=== PATIENT | male | born 1950 | race Caucasian/White ===

== ENCOUNTER 2019-04-26 22:40 | Observation (INO) | payer OTHER ==
--- NOTE | 2019-04-26 22:56 | PDOC ---
History of Present Illness - General Chief Complaint: Chest Pain Stated Complaint: CHEST PAIN Time Seen by Provider: 04/26/19 22:55 History Source: Patient Exam Limitations: No Limitations - History of Present Illness Initial Comments: Pt is a 68 yo M, with PMH of HTN (newly on metoprolol) and bradycardia, who is presenting with complaints of chest discomfort. Pt states he was at [facility] 6 days ago, and received an echo and cath which "all came back normal". Pt states he was unable to tolerate the stress test and that while he was in the hospital, his HR was "up and down". Pt states his chest pressure started about an hour before arrival, was non-exertional, but was associated with diaphoresis , light-headedness, and "racing in my chest". He denies any nausea/vomiting or radiation of pain. Pt states this pain is very similar to the pain that took him to [facility] ER, but denies any active pain now. The pain lasts usually about an hour at a time. Pt denies any recent fevers/chills, headache, vision changes, syncope, SOB, nausea/vomiting, abdominal pain, urinary symptoms, diarrhea/constipation, or leg swelling. Allergies: NKDA PCP: None Social: Pt denies any cigarette, alcohol, or drug use. Pt denies any recent travel or sick contacts. Surgical: no relevant history. Family: no relevant history. 04/27/19 00:07 04/27/19 00:18 Past History - Travel Traveled outside of the country in the last 30 days: No Close contact w/someone who was outside of country & ill: No - Past Medical History Allergies/Adverse Reactions: Allergies Allergy/AdvReac Type Severity Reaction Status Date / Time No Known Allergies Allergy Verified 04/26/19 22:51 COPD: No HTN: Yes - Suicide/Smoking/Psychosocial Hx Smoking History: Never smoked Cardiac Specific PMH - Complaint Specific PMHX Abdominal Aortic Aneurysm: No Angina: Yes Cardiac Arrhythmia: No Cardiac Stent: No GERD: No Myocardial Infarction: No Pacemaker: No Pulmonary Embolus: No Valvular Heart Disease: No Peripheral Vascular Disease: No Review of Systems - Review of Systems Able to Perform ROS?: Yes Is the patient limited Barbadian proficient: No Constitutional: Yes: Weight Stable. No: Chills, Diaphoresis, Fever, Loss of Appetite, Malaise, Weakness HEENTM: No: Blurred Vision, Double Vision, Nose Congestion, Throat Pain, Throat Swelling, Difficulty Swallowing Respiratory: No: Cough, Orthopnea, Shortness of Breath Cardiac (ROS): Yes: Chest Pain, Irregular Heart Rate, Lightheadedness, Palpitations. No: Edema, Syncope, Chest Tightness ABD/GI: No: Constipated, Diarrhea, Nausea, Poor Appetite, Poor Fluid Intake, Vomiting : No: Burning, Dysuria, Frequency, Pain, Urgency Musculoskeletal: No: Back Pain, Joint Pain, Muscle Pain, Muscle Weakness Integumentary: No: Rash Neurological: No: Headache, Numbness, Paresthesia, Weakness, Unsteady Gait, Dizziness Psychiatric: No: Sleep Pattern Change, Change in Appetite Endocrine: No: Increased Urine, Change in Weight Hematologic/Lymphatic: No: Anemia, Blood Clots, Easy Bleeding, Easy Bruising *Physical Exam - Vital Signs Last Vital Signs Temp Pulse Resp BP Pulse Ox 98.2 F 49 L 14 116/70 100 04/26/19 22:51 04/27/19 00:57 04/27/19 00:57 04/27/19 00:57 04/27/19 00:57 HR 40s on palp, pt afebrile. Pt in NAD, lying comfortably in the bed, speaking in full sentences. Normal body habitus. Pt alert and oriented x3. 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 No midline spinal tenderness, step-offs, or crepitus. Head normocephalic, atraumatic. Eyes PERRLA, EOMI. Oropharynx without erythema or exudates, no LAD b/l. No nasal congestion, hearing intact. Clear heart sounds, S1/S2, no JVD, b/l pedal edema, or heart murmur. Clear lung sounds, no respiratory distress, wheezes, crackles, or accessory muscle use. No abdominal or CVA tenderness to palpation, no rebound, no guarding. Abdomen soft, non-distended, and with normoactive bowel sounds. Skin without jaundice or rash. 04/27/19 00:19 ED Treatment Course - LABORATORY CBC & Chemistry Diagram: 04/26/19 23:15 04/26/19 23:15 - ADDITIONAL ORDERS Additional order review: Laboratory Results 04/26/19 04/26/19 04/26/19 23:15 23:15 23:15 PT with INR 13.20 H INR 1.12 H Sodium 139 Potassium 4.4 Chloride 104 Carbon Dioxide 28 Anion Gap 6 L BUN 16.8 Creatinine 1.1 Est GFR (CKD-EPI)AfAm 80.65 Est GFR (CKD-EPI)NonAf 69.58 Random Glucose 108 H Calcium 9.2 Magnesium 2.4 Total Bilirubin 0.5 AST 53 H ALT 78 H Alkaline Phosphatase 54 Creatine Kinase 53 Troponin I < 0.02 Total Protein 7.3 Albumin 3.8 04/26/19 23:15 RBC 4.89 MCV 93.2 MCHC 33.8 RDW 13.3 MPV 9.3 Neutrophils % 70.2 Lymphocytes % 16.9 Monocytes % 11.3 H Eosinophils % 1.3 Basophils % 0.3 - RADIOLOGY Radiology Studies Ordered: Category Date Time Status CHEST X-RAY PORTABLE* [RAD] Stat Radiology 04/26/19 22:57 Taken - Medications Given in the ED: ED Medications Discontinued Medications Generic Name Dose Route Start Last Admin Trade Name Freq PRN Reason Stop Dose Admin Aspirin 162 mg 04/26/19 23:41 04/27/19 00:12 Asa - PO 04/26/19 23:42 162 mg ONCE ONE Administration Medical Decision Making - Medical Decision Making Pt was seen at bedside, also will be seen by attending Dr. Man. Pt presenting with chest pressure similar to a few days ago in which he had a negative cath and echo, per patient. Pt had bradycardia (HR 50s) with bigeminy and PVCs at [facility] (confirmed with ER doctor at [facility] with pts permission ), but was started on 25 mg PO metoprolol BID with outpatient f/u. Will evaluate with labs to r/o ACS -- will stay for tele observation. Provided 162 mg PO aspirin. Pt states no active chest pain at this time. Will continue to reassess pt and monitor for symptomatic improvement. ECG: Frequent PVCs with bigeminy (HR 62, TN 168, QRS 100, QTc 442). No TWIs or significant ST segment changes. No prior ECG for comparison. 04/27/19 00:20 Labs generally WNL Trop <.02; BP remained stable and pt asymptomatic pt admitted to hospitalist team (Dr. Box) for tele obs. 04/27/19 01:34 *DC/Admit/Observation/Transfer Diagnosis at time of Disposition: Ventricular bigeminy seen on cardiac specialist, Bradycardia, Chest pressure - Discharge Dispostion Condition at time of disposition: Stable Decision to Admit order: Yes Decision to Admit order Date/Time: Decision to Admit Order Category Date Time Status Decision to Admit to Hospital Routine Admission 04/27/19 00:29 Active - Referrals - Patient Instructions - Post Discharge Activity
[2019-04-26] MEDS ORDERED: ASPIRIN 81 MG CHEWABLE TABLETS PO ONE (23:41)
[2019-04-26 23:50] LABS: BASO % 0.3 % (0-2.0); EOS % 1.3 % (0-4.5); HEMATOCRIT 45.5 % (35.4-49); HEMOGLOBIN 15.4 GM/dL (11.7-16.9); LYMPH % 16.9 % (8-40); MCH 31.5 pg (25.7-33.7); MCHC 33.8 g/dl (32.0-35.9); MEAN CELL VOLUME 93.2 fl (80-96); MEAN PLT VOLUME 9.3 fl (7.5-11.1); MONO % 11.3 % (3.8-10.2); NEUT % 70.2 % (42.8-82.8); PLATELET COUNT 178 K/MM3 (134-434); RBC 4.89 M/mm3 (4.00-5.60); RDW 13.3 % (11.9-15.9); WHITE BLOOD COUNT 6.7 K/mm3 (4.0-10.0)
[2019-04-27] MEDS ORDERED: ASPIRIN 81 MG CHEWABLE TABLETS ONE (00:09)
[2019-04-27 00:27] LABS: ALBUMIN 3.8 g/dl (3.4-5.0); BILIRUBIN,TOTAL 0.5 mg/dL (0.2-1); BLOOD UREA NITROGEN 16.8 mg/dL (7-18); CALCIUM 9.2 mg/dL (8.5-10.1); CREATININE 1.1 mg/dL (0.55-1.3); MAGNESIUM 2.4 mg/dL (1.8-2.4); POTASSIUM 4.4 mmol/L (3.5-5.1); TOT PROT 7.3 g/dl (6.4-8.2)
[2019-04-27 00:45] LABS: INR 1.12 (0.83-1.09); PROTHROMBIN TIME (PATIENT) 13.2 SEC (9.7-13.0)
--- NOTE | 2019-04-27 00:45 | PDOC ---
Documentation entered by Naomy Ruano SCRIBE, acting as scribe for Rima Man MD. Rima Man MD: This documentation has been prepared by the Alden horvath Sammi, SCRIBE, under my direction and personally reviewed by me in its entirety. I confirm that the documentation accurately reflects all work, treatment, procedures, and medical decision making performed by me. Attending Attestation - Resident Resident Name: Consuelo Mauro - ED Attending Attestation I have performed the following: I have examined & evaluated the patient, The case was reviewed & discussed with the resident, I agree w/resident's findings & plan, Exceptions are as noted - HPI HPI: 04/26/19 23:47 The patient is a 68 year old male who presents for evaluation of chest pressure and diaphoresis at rest. The patient was admitted on 04/24 at [facility] for similar symptoms. The patient received a cath and echo which came back normal and was discharged on toprol. - Physicial Exam PE: 04/27/19 00:39 wnwd 68 yo male with chest pain head ncat neck supple lungs cta b/l cvs [id number] abd nontender skn warm and dry no flank tenderness neuro axox3,ambulatory psych appropriate - Medical Decision Making 04/27/19 00:41 ekg bradycardia, bigeminy,pvcs , inc RBBB 04/27/19 00:42 negative troponin pt received aspirin chest pain improved pt admitted to telemetry
--- NOTE | 2019-04-27 02:15 | HP ---
CHIEF COMPLAINT: chest pain PCP: none (needs primary) HISTORY OF PRESENT ILLNESS: Carlos Arnold is a 68 year old male with a past medical history HTN and bradycardia who presents to the ED with chest pressure of 1 hour duration. The patient stated that he has been having these kinds of pain for the last 6-7 months. He states the pains are associated with shortness of breath, are exertional, associated with diaphoresis, lightheadedness. He stated that the pains had been worsening over the last several months. Noted that the pains are sharp in nature, present for an hour or less, are reproducible with bending and pressure on the spot he feels the most pain. Presented to [facility] 6 days ago with the same kind of pain and was admitted for ACS workup. EKG at that facility showed bradycardia, ventricular bigeminy, PVCs showing ST depressions in leads II, III, aVF, V4, V5, V6. Cardiac cath was performed at [facility] which did not show any abnormalities in any cardiac vessels. Was started on Toprol 25mg. Today the patient stated that he had the same kind of pain that he has been having and presented to [place]. States that the pain is located on the right side of the chest but can sometimes present on the left side of the chest and migrate. Denied pain radiating down the arm or radi Denied headaches, fever, chills, weight gain, weight loss, nausea, vomiting, dysphagia, dysarthria , abdominal pain, numbness, tingling. Stated he had occasional cold sensations, increased urination at night, pain in R leg (previous fracture in leg). Partner at bedside stated that the patient has snoring and occasional apneas during the night. ER course was notable for: (1) given aspirin (2) negative troponins (3) EKG showing sinus bradycardia with ventricular bigeminy, PVCs with ST depressions in II, III, aVF, V4, V5, V6, unchanged from previous EKG from [facility] (4) bradycardia on monitor PAST MEDICAL HISTORY: as above PAST SURGICAL HISTORY: denies surgical history Social History: Smoking: quit, previously smoked 5 cigars a day for 20 years Alcohol: occasional wine drinking Drugs: denies Family History: Denies any significant family history Allergies No Known Allergies Allergy (Verified 04/26/19 22:51) HOME MEDICATIONS: REVIEW OF SYSTEMS CONSTITUTIONAL: Absent: fever, chills, diaphoresis, generalized weakness, malaise, loss of appetite, weight change HEENT: Absent: rhinorrhea, nasal congestion, throat pain, throat swelling, difficulty swallowing, visual changes CARDIOVASCULAR: chest pain, irregular heart rate, lightheadedness Absent: syncope, palpitations, peripheral edema RESPIRATORY: shortness of breath, dyspnea with exertion, Absent: cough, orthopnea, wheezing, stridor, GASTROINTESTINAL: Absent: abdominal pain, abdominal distension, nausea, vomiting, diarrhea, constipation, GENITOURINARY: frequency Absent: dysuria, urgency, hesitancy, flank pain, MUSCULOSKELETAL: back pain (lower, parasternal) Absent: myalgia, arthralgia, joint swelling, neck pain SKIN: Absent: rash, itching, pallor HEMATOLOGIC/IMMUNOLOGIC: Absent: easy bleeding, easy bruising, lymphadenopathy, frequent infections ENDOCRINE: cold intolerance Absent: unexplained weight gain, unexplained weight loss, heat intolerance, NEUROLOGIC: Absent: headache, focal weakness or paresthesias, dizziness, unsteady gait, seizure, mental status changes, bladder or bowel incontinence PSYCHIATRIC: Absent: anxiety, depression, suicidal or homicidal ideation, hallucinations. PHYSICAL EXAMINATION Vital Signs - 24 hr 04/26/19 04/26/19 04/27/19 22:51 23:42 00:57 Temperature 98.2 F Pulse Rate 29 L Pulse Rate [ 49 L 49 L Left] Respiratory 14 14 Rate Blood Pressure 136/56 L Blood Pressure 116/70 116/70 [Right] O2 Sat by Pulse 100 98 100 Oximetry (%) GENERAL: Awake, alert, and fully oriented, in no acute distress. HEAD: Normal with no signs of trauma. EYES: Pupils equal, round and reactive to light, extraocular movements intact, sclera anicteric, conjunctiva clear. EARS, NOSE, THROAT: Oropharynx clear without exudates. Moist mucous membranes. NECK: Normal range of motion, supple without lymphadenopathy, JVD. LUNGS: Breath sounds equal, clear to auscultation bilaterally. No wheezes, and no crackles. No accessory muscle use. HEART: Irregular rate and rhythm, normal S1 and S2 without murmur, rub. Pain reproducible upon palpation. ABDOMEN: Soft, nontender, not distended, normoactive bowel sounds, no guarding, no rebound, no masses. MUSCULOSKELETAL: Normal range of motion at all joints. No bony deformities. Has lower back paraspinal tenderness. Noted chronic lipomas on back. UPPER EXTREMITIES: 2+ pulses, warm, well-perfused. No cyanosis. No clubbing. No peripheral edema. LOWER EXTREMITIES: 2+ pulses, warm, well-perfused. Mild calf tenderness. No peripheral edema. NEUROLOGICAL: Cranial nerves II-XII intact. Normal muscle strength bilaterally upper and lower extremities. PSYCHIATRIC: Cooperative. Good eye contact. Appropriate mood and affect. SKIN: Warm, dry, normal turgor, no rashes or lesions noted, normal capillary refill. Laboratory Results - last 24 hr 04/26/19 04/26/19 04/26/19 23:15 23:15 23:15 WBC 6.7 RBC 4.89 Hgb 15.4 Hct 45.5 MCV 93.2 MCH 31.5 MCHC 33.8 RDW 13.3 Plt Count 178 MPV 9.3 Absolute Neuts (auto) 4.7 Neutrophils % 70.2 Lymphocytes % 16.9 Monocytes % 11.3 H Eosinophils % 1.3 Basophils % 0.3 Nucleated RBC % 0 PT with INR INR Sodium 139 Potassium 4.4 Chloride 104 Carbon Dioxide 28 Anion Gap 6 L BUN 16.8 Creatinine 1.1 Est GFR (CKD-EPI)AfAm 80.65 Est GFR (CKD-EPI)NonAf 69.58 Random Glucose 108 H Calcium 9.2 Magnesium 2.4 Total Bilirubin 0.5 AST 53 H ALT 78 H Alkaline Phosphatase 54 Creatine Kinase 53 Troponin I < 0.02 Total Protein 7.3 Albumin 3.8 04/26/19 23:15 WBC RBC Hgb Hct MCV MCH MCHC RDW Plt Count MPV Absolute Neuts (auto) Neutrophils % Lymphocytes % Monocytes % Eosinophils % Basophils % Nucleated RBC % PT with INR 13.20 H INR 1.12 H Sodium Potassium Chloride Carbon Dioxide Anion Gap BUN Creatinine Est GFR (CKD-EPI)AfAm Est GFR (CKD-EPI)NonAf Random Glucose Calcium Magnesium Total Bilirubin AST ALT Alkaline Phosphatase Creatine Kinase Troponin I Total Protein Albumin EKG--> EKG showing sinus bradycardia with ventricular bigeminy, PVCs with ST depressions in II, III, aVF, V4, V5, V6, unchanged from previous EKG from [facility] ASSESSMENT/PLAN: Carlos Arnold is a 68 year old male with a past medical history HTN and bradycardia admitted for workup of chest pain. Chest Pain Bradycardia HTN Elevated LFTs Chest Pain - unknown etiology of chest pain but likely related to bradycardia, HTN, history of smoking - telemetry monitoring - troponins negative, continue trend - CXR shows possible congestion of pulmonary arteries, ?cephalization of vessels , no pleural effusions or infiltrate noted - EKG with no significant changes from previous EKG obtained from [facility] - given aspirin - echo - lipids - A1c in setting of nocturia - TSH - Dr. Carreon consulted - in setting of cardiac history and history of snoring and apneic episodes as per partner, will likely need outpatient sleep apnea testing - duplex of bilateral legs Bradycardia - Dr. Carreon consulted - unclear origin of bradycardia, likely contributing is Toprol, probable underlying electrical abnormality - hold toprol - continuous cardiac monitoring HTN - no current elevation of BP - will need to switch from Toprol in setting of bradycardia Elevated LFTs - no history of increased acetaminophen or alcohol use - Hep panel - HIV testing FEN - no standing fluids - continue to monitor electrolytes and replete as necessary - sodium controlled diet Prophylaxis - Lovenox 40mg subq daily - early ambulation Code - full code ALEX JULES DO - PGY-1 Visit type - Emergency Visit Emergency Visit: Yes ED Registration Date: 04/27/19 Care time: The patient presented to the Emergency Department on the above date and was hospitalized for further evaluation of their emergent condition. - New Patient This patient is new to me today: Yes Date on this admission: 04/27/19 - Critical Care Critical Care patient: No
--- NOTE | 2019-04-27 02:44 | PN ---
Teaching Attending Note Name of Resident: Robert Diehl ATTENDING PHYSICIAN STATEMENT I saw and evaluated the patient. I reviewed the resident's note and discussed the case with the resident. I agree with the resident's findings and plan as documented. Seen and examined; please refer to resident note for further historical informaiton. Briefly, this is a 68 y/o male with recent negative cath (all vessels described negative in report faxed from [facility], LV gram not given and echo not included) presents with marked bradycardia to 20s (BP stable, now 50s and stable). EKG in our ER is changed from his admit EKG to [facility] but similar to his DC with apparent bigeminy. Did not get intervention with PCI but was discharged on metoprolol. HE has some chest pain, some SOB that is worse with lying. Will be admitted to tele with CV consult. VS, labs, imaging reviewed NAD, AAO, resting in bed HR 50s, s1/2 regular CN2-12 wnl, no fnd Normal mood, appropriate behavior EKG shows Cath report discussed; to be included in paper chart ASSESSMENT AND PLAN: Patient presents with sinus bradycardia # Sinus Bradycardia # Chest Pain # SOB with orthopnea # Hx HTN # HLD Full Code
[2019-04-27 06:45] LABS: BASO % 0.3 % (0-2.0); EOS % 1.2 % (0-4.5); HEMATOCRIT 42.2 % (35.4-49); HEMOGLOBIN 14.5 GM/dL (11.7-16.9); LYMPH % 17.1 % (8-40); MCH 31.8 pg (25.7-33.7); MCHC 34.3 g/dl (32.0-35.9); MEAN CELL VOLUME 92.5 fl (80-96); MEAN PLT VOLUME 9.7 fl (7.5-11.1); MONO % 10.6 % (3.8-10.2); NEUT % 70.8 % (42.8-82.8); PLATELET COUNT 159 K/MM3 (134-434); RBC 4.56 M/mm3 (4.00-5.60); RDW 13.4 % (11.9-15.9); WHITE BLOOD COUNT 5.6 K/mm3 (4.0-10.0)
[2019-04-27 07:23] LABS: ALBUMIN 3.6 g/dl (3.4-5.0); BILIRUBIN,TOTAL 0.6 mg/dL (0.2-1); BLOOD UREA NITROGEN 16.8 mg/dL (7-18); CALCIUM 9.1 mg/dL (8.5-10.1); CREATININE 0.9 mg/dL (0.55-1.3); MAGNESIUM 2.5 mg/dL (1.8-2.4); POTASSIUM 4.1 mmol/L (3.5-5.1)
--- NOTE | 2019-04-27 08:17 | CON.CARD ---
Consult Consult Specialty:: Cardiology - History of Present Illness History of Present Illness: this is a 68 y/o male with recent negative cath (all vessels described negative in report faxed from [facility], LV gram not given and echo not included) presents with marked bradycardia to 20s (BP stable, now 50s and stable). EKG in our ER is changed from his admit EKG to [facility] but similar to his DC with apparent bigeminy. Did not get intervention with PCI but was discharged on metoprolol. HE has some chest pain, some SOB that is worse with lying. Will be admitted to [facility] with CV consult. - History Source History Provided By: Patient, Medical Record - Smoking History Smoking history: Never smoked Home Medications - Allergies Allergies/Adverse Reactions: Allergies Allergy/AdvReac Type Severity Reaction Status Date / Time No Known Allergies Allergy Verified 04/26/19 22:51 - Home Medications Home Medications: Ambulatory Orders Metoprolol Succinate 100 mg PO DAILY 04/27/19 Review of Systems - Review of Systems Constitutional: reports: No Symptoms Eyes: reports: No Symptoms HENT: reports: No Symptoms Neck: reports: No Symptoms Cardiovascular: reports: No Symptoms Gastrointestinal: reports: No Symptoms Genitourinary: reports: No Symptoms Breasts: reports: No Symptoms Reported Musculoskeletal: reports: No Symptoms Integumentary: reports: No Symptoms Neurological: reports: No Symptoms Endocrine: reports: No Symptoms Hematology/Lymphatic: reports: No Symptoms Psychiatric: reports: No Symptoms Vital Signs: Vital Signs Temperature 98.2 F 04/26/19 22:51 Pulse Rate 52 L 04/27/19 06:38 Respiratory Rate 16 04/27/19 06:38 Blood Pressure 130/73 04/27/19 06:38 O2 Sat by Pulse Oximetry (%) 100 04/27/19 06:38 Constitutional: Yes: Well Nourished, No Distress, Calm Eyes: Yes: WNL, Conjunctiva Clear, EOM Intact HENT: Yes: WNL, Atraumatic, Normocephalic Neck: Yes: WNL, Supple, Trachea Midline Respiratory: Yes: WNL, Regular, CTA Bilaterally Gastrointestinal: Yes: WNL, Normal Bowel Sounds Renal/: Yes: WNL Cardiovascular: Yes: WNL, Regular Rate and Rhythm Musculoskeletal: Yes: WNL Extremities: Yes: WNL Integumentary: Yes: WNL Neurological: Yes: WNL, Alert, Oriented ...Motor Strength: WNL Psychiatric: Yes: WNL, Alert, Oriented - Other Data Labs, Other Data: CBC, BMP 04/27/19 06:15 INR, PTT INR 1.12 (0.83-1.09) H 04/26/19 23:15 Troponin, BNP 04/26/19 04/27/19 23:15 06:15 Troponin I < 0.02 < 0.02 Troponin, BNP 04/26/19 04/27/19 23:15 06:15 Troponin I < 0.02 < 0.02 Imaging - Results Chest X-ray: Image Reviewed (no i/e) EKG: Image Reviewed (sr roro arnold) Problem List - Problems (1) Bradycardia Code(s): R00.1 - BRADYCARDIA, UNSPECIFIED (2) Chest pressure Code(s): R07.89 - OTHER CHEST PAIN (3) Ventricular bigeminy seen on unix manager Code(s): R00.8 - OTHER ABNORMALITIES OF HEART BEAT Assessment/Plan chest pain bradycardia recent neg c. cath Plan d/c metoprolol 24 holter echo telemetry will f/u
[2019-04-27] MEDS: ENOXAPARIN NA (PORCINE) 40 MG/0.4 ML DISP.SYRIN SQ SCH (10:02)
--- NOTE | 2019-04-27 10:42 | EKG ---
Test Reason : Blood Pressure : / mmHG Vent. Rate : 062 BPM Atrial Rate : 062 BPM P-R Int : 168 ms QRS Dur : 100 ms QT Int : 436 ms P-R-T Axes : 068 -16 051 degrees QTc Int : 442 ms SINUS RHYTHM WITH FREQUENT PREMATURE VENTRICULAR COMPLEXES IN A PATTERN OF BIGEMINY BIATRIAL ENLARGEMENT INCOMPLETE RIGHT BUNDLE BRANCH BLOCK ABNORMAL ECG NO PREVIOUS ECGS AVAILABLE Confirmed by LEONARD DASILVA, YANI ([id number]) on 04/27/2019 10:42:19 AM Referred By: Confirmed By:YANI VALLE MD
--- NOTE | 2019-04-27 11:37 | ECHO ---
Name: VICTORIA TOMLIN, INEZ Exam:Adult Echocardiogram Study Date: 04/27/2019 09:08 AM Age: 68 yrs Reason For Study: Chest pain Height: 67 in Weight: 180 lb BSA: 1.9 m2 MMode/2D Measurements & Calculations IVSd: 1.5 cm ACS: 2.0 cm LVIDd: 5.2 cm LVIDs: 3.9 cm LVPWd: 1.6 cm EDV(Teich): 129.5 ml LVOT diam: 2.0 cm ESV(Teich): 67.1 ml RV S Collin: 17.3 cm/sec Doppler Measurements & Calculations Ao V2 max: 152.2 cm/sec TR max collin: 270.5 cm/sec Ao max P.3 mmHg TR max P.3 mmHg Ao V2 mean: 102.9 cm/sec Ao mean P.8 mmHg Ao V2 VTI: 40.9 cm Med Peak E' Collin: 5.8 cm/sec Procedure A two-dimensional transthoracic echocardiogram with color flow and Doppler was performed. The study w as technically difficult with many images being suboptimal in quality. Left Ventricle There is moderate concentric left ventricular hypertrophy. The left ventricle is not well visualized. Left ventricular systolic function is mild to moderately reduced. Regional wall motion abnormalities canno t be excluded due to limited visualization. Right Ventricle The right ventricle is not well visualized. Atria The left atrium is not well visualized. Right atrium not well visualized. Mitral Valve There is mild mitral valve thickening. There is no mitral valve stenosis. There is trace to mild mitr al regurgitation. Tricuspid Valve There is mild tricuspid valve thickening. There is no tricuspid stenosis. There is Trace to mild tric uspid regurgitation. Right ventricular systolic pressure is elevated at 40-50mmHg. Aortic Valve The aortic valve is normal in structure and function. No hemodynamically significant valvular aortic stenosis. No aortic regurgitation is present. Pulmonic Valve The pulmonic valve is not well visualized. Great Vessels The aortic root is not well visualized. Pericardium/Pleura There is no pericardial effusion. Interpretation Summary There is moderate concentric left ventricular hypertrophy. There is Trace to mild tricuspid regurgitation. Right ventricular systolic pressure is elevated at 40-50mmHg. The study was technically difficult with many images being suboptimal in quality. The left ventricle is not well visualized. Regional wall motion abnormalities cannot be excluded due to limited visualization. Left ventricular systolic function is mild to moderately reduced. There is trace to mild mitral regurgitation. MD Jayesh Carreon 04/27/2019 11:37 AM
--- NOTE | 2019-04-27 18:06 | PN ---
Physical Exam: SUBJECTIVE: 68 y/o M w PMH HTN and bradycardia whom presented to ED for chest pressure and was admitted for bradycardia in the 20s now stable in the 50s. Pt had recent NEG cath but no PCI ([facility] documents in paper chart). EKG in ED demonstrated bigeminy. Today, he has some chest pain that is reproducible w palpation. SOB, worse in recumbence. No cough. He denies NVFD. OBJECTIVE: Vital Signs Temp Pulse Resp BP Pulse Ox 97.6 F 54 L 20 118/60 97 04/27/19 18:17 04/27/19 20:46 04/27/19 20:46 04/27/19 20:46 04/27/19 20:46 GENERAL: Awake, AOx3, in no acute distress. HEAD: NCAT EYES: JANENE, EOMI, sclera anicteric, conjunctiva clear. EARS, NOSE, THROAT: Oropharynx clear without exudates. Moist mucous membranes. NECK: Normal range of motion, supple without lymphadenopathy, JVD. LUNGS: Breath sounds equal, clear to auscultation bilaterally. No wheezes, and no crackles. No accessory muscle use. HEART: Irregular rate and rhythm, normal S1 and S2 without murmur, rub. Pain reproducible upon palpation. ABDOMEN: Soft, nontender, not distended, normoactive bowel sounds, no guarding, no rebound, no masses. MUSCULOSKELETAL: Normal range of motion at all joints. No bony deformities. Has lower back paraspinal tenderness. Noted chronic lipomas on back. UPPER EXTREMITIES: 2+ pulses, warm, well-perfused. No cyanosis. No clubbing. No peripheral edema. LOWER EXTREMITIES: 2+ pulses, warm, well-perfused. Mild calf tenderness. No peripheral edema. NEUROLOGICAL: Cranial nerves II-XII intact. Normal muscle strength bilaterally upper and lower extremities. PSYCHIATRIC: Cooperative. Good eye contact. Appropriate mood and affect. SKIN: Warm, dry, normal turgor, no rashes or lesions noted, normal capillary refill. Laboratory Results - last 24 hr 04/26/19 04/26/19 04/26/19 23:15 23:15 23:15 WBC 6.7 RBC 4.89 Hgb 15.4 Hct 45.5 MCV 93.2 MCH 31.5 MCHC 33.8 RDW 13.3 Plt Count 178 MPV 9.3 Absolute Neuts (auto) 4.7 Neutrophils % 70.2 Lymphocytes % 16.9 Monocytes % 11.3 H Eosinophils % 1.3 Basophils % 0.3 Nucleated RBC % 0 PT with INR INR Sodium 139 Potassium 4.4 Chloride 104 Carbon Dioxide 28 Anion Gap 6 L BUN 16.8 Creatinine 1.1 Est GFR (CKD-EPI)AfAm 80.65 Est GFR (CKD-EPI)NonAf 69.58 Random Glucose 108 H Calcium 9.2 Magnesium 2.4 Total Bilirubin 0.5 AST 53 H ALT 78 H Alkaline Phosphatase 54 Creatine Kinase 53 Troponin I < 0.02 Total Protein 7.3 Albumin 3.8 TSH 04/26/19 04/27/19 04/27/19 23:15 06:15 06:15 WBC 5.6 RBC 4.56 Hgb 14.5 Hct 42.2 MCV 92.5 MCH 31.8 MCHC 34.3 RDW 13.4 Plt Count 159 MPV 9.7 Absolute Neuts (auto) 4.0 Neutrophils % 70.8 Lymphocytes % 17.1 Monocytes % 10.6 H Eosinophils % 1.2 Basophils % 0.3 Nucleated RBC % 0 PT with INR 13.20 H INR 1.12 H Sodium 138 Potassium 4.1 Chloride 104 Carbon Dioxide 28 Anion Gap 7 L BUN 16.8 Creatinine 0.9 Est GFR (CKD-EPI)AfAm 102.79 Est GFR (CKD-EPI)NonAf 88.69 Random Glucose 94 Calcium 9.1 Magnesium 2.5 H Total Bilirubin 0.6 AST 33 ALT 64 H Alkaline Phosphatase 52 Creatine Kinase Troponin I Total Protein 7.0 Albumin 3.6 TSH 2.09 04/27/19 06:15 WBC RBC Hgb Hct MCV MCH MCHC RDW Plt Count MPV Absolute Neuts (auto) Neutrophils % Lymphocytes % Monocytes % Eosinophils % Basophils % Nucleated RBC % PT with INR INR Sodium Potassium Chloride Carbon Dioxide Anion Gap BUN Creatinine Est GFR (CKD-EPI)AfAm Est GFR (CKD-EPI)NonAf Random Glucose Calcium Magnesium Total Bilirubin AST ALT Alkaline Phosphatase Creatine Kinase Troponin I < 0.02 Total Protein Albumin TSH Active Medications Generic Name Dose Route Start Last Admin Trade Name Freq PRN Reason Stop Dose Admin Enoxaparin Sodium 40 mg 04/27/19 10:00 04/27/19 10:02 Lovenox - SQ 40 mg DAILY [facility] Administration ASSESSMENT/PLAN: 68 y/o male w PMH HTN and bradycardia admitted for bradycardia. In ED, given ASA and had NEG troponins x2. POS EKG showing sinus bradycardia with ventricular bigeminy, PVCs with ST depressions in II, III, aVF, V4, V5, V6, unchanged from previous EKG from [facility]. On tele unit demonstrating bradycardia on monitor. # Sinus Bradycardia - Unclear origin of bradycardia - pos underlying electrical abnormality - Hold toprol - Continuous cardiac monitoring # Chest Pain - unknown etiology of chest pain but likely related to bradycardia, HTN, history of smoking - telemetry monitoring - troponins NEG x2 - CXR shows possible congestion of pulmonary arteries, ?cephalization of vessels , no pleural effusions or infiltrate noted - EKG with no significant changes from previous EKG obtained from [facility] - Echo: Moderate concentric LV hypertrophy, elevated RV systolic pressure (40- 50mmHg), LV systolic func. mild-mod reduced - 24 holter #Poss ROSALINDA - H/o snoring and apneic episodes as per partner, will likely need outpatient sleep apnea testing # Transaminitis - AST/ALT 53/78 - no history of increased acetaminophen or alcohol use - Hep panel pending - HIV testing pending # Hx HTN - no current elevation of BP - will need to switch from Toprol in setting of bradycardia # HLD - Cont. home regimen # F/E/N - No standing fluids - Cont. to monitor electrolytes and replete as necessary - Sodium controlled diet # DVT prophylaxis - Lovenox 40mg subq daily - Early ambulation # Disposition - Telemetry - full code Ricki Kaur MD Visit type - Emergency Visit Emergency Visit: No - New Patient This patient is new to me today: No - Critical Care Critical Care patient: No - Discharge Referral Referred to [facility] Med [facility].: No ATTENDING PHYSICIAN STATEMENT I saw and evaluated the patient. I reviewed the resident's note and discussed the case with the resident. I agree with the resident's findings and plan as documented. SUBJECTIVE: OBJECTIVE: ASSESSMENT AND PLAN:
[2019-04-27 18:21] VITALS: BMI 29.6
--- NOTE | 2019-04-27 19:52 | PN ---
Teaching Attending Note Name of Resident: Ricki Kaur ATTENDING PHYSICIAN STATEMENT I saw and evaluated the patient. I reviewed the resident's note and discussed the case with the resident. I agree with the resident's findings and plan as documented. SUBJECTIVE: complains of lethargy, intermittent CP, SOB on exertion OBJECTIVE: Afebrile, Hemodynamicaly Stable. Last Vital Signs Temp Pulse Resp BP Pulse Ox 97.6 F 60 18 130/59 L 99 04/27/19 18:17 04/27/19 18:17 04/27/19 18:17 04/27/19 18:17 04/27/19 17:41 HEENT - Atraumatic, Normocephalic. Heart - S1, S2, Karan Lungs - clear to auscultation Abdomen - soft, non-tender. Bowel Sounds normal. Extremities - No edema, no calf tenderness. Laboratory Results - last 24 hr 04/26/19 04/26/19 04/26/19 23:15 23:15 23:15 WBC 6.7 RBC 4.89 Hgb 15.4 Hct 45.5 MCV 93.2 MCH 31.5 MCHC 33.8 RDW 13.3 Plt Count 178 MPV 9.3 Absolute Neuts (auto) 4.7 Neutrophils % 70.2 Lymphocytes % 16.9 Monocytes % 11.3 H Eosinophils % 1.3 Basophils % 0.3 Nucleated RBC % 0 PT with INR INR Sodium 139 Potassium 4.4 Chloride 104 Carbon Dioxide 28 Anion Gap 6 L BUN 16.8 Creatinine 1.1 Est GFR (CKD-EPI)AfAm 80.65 Est GFR (CKD-EPI)NonAf 69.58 Random Glucose 108 H Calcium 9.2 Magnesium 2.4 Total Bilirubin 0.5 AST 53 H ALT 78 H Alkaline Phosphatase 54 Creatine Kinase 53 Troponin I < 0.02 Total Protein 7.3 Albumin 3.8 TSH 04/26/19 04/27/19 04/27/19 23:15 06:15 06:15 WBC 5.6 RBC 4.56 Hgb 14.5 Hct 42.2 MCV 92.5 MCH 31.8 MCHC 34.3 RDW 13.4 Plt Count 159 MPV 9.7 Absolute Neuts (auto) 4.0 Neutrophils % 70.8 Lymphocytes % 17.1 Monocytes % 10.6 H Eosinophils % 1.2 Basophils % 0.3 Nucleated RBC % 0 PT with INR 13.20 H INR 1.12 H Sodium 138 Potassium 4.1 Chloride 104 Carbon Dioxide 28 Anion Gap 7 L BUN 16.8 Creatinine 0.9 Est GFR (CKD-EPI)AfAm 102.79 Est GFR (CKD-EPI)NonAf 88.69 Random Glucose 94 Calcium 9.1 Magnesium 2.5 H Total Bilirubin 0.6 AST 33 ALT 64 H Alkaline Phosphatase 52 Creatine Kinase Troponin I Total Protein 7.0 Albumin 3.6 TSH 2.09 04/27/19 06:15 WBC RBC Hgb Hct MCV MCH MCHC RDW Plt Count MPV Absolute Neuts (auto) Neutrophils % Lymphocytes % Monocytes % Eosinophils % Basophils % Nucleated RBC % PT with INR INR Sodium Potassium Chloride Carbon Dioxide Anion Gap BUN Creatinine Est GFR (CKD-EPI)AfAm Est GFR (CKD-EPI)NonAf Random Glucose Calcium Magnesium Total Bilirubin AST ALT Alkaline Phosphatase Creatine Kinase Troponin I < 0.02 Total Protein Albumin TSH Current Medications Generic Name Dose Route Start Last Admin Trade Name Freq PRN Reason Stop Dose Admin Enoxaparin Sodium 40 mg 04/27/19 10:00 04/27/19 10:02 Lovenox - SQ 40 mg DAILY [facility] Administration Home Medications Medication Instructions Recorded Metoprolol Tartrate 25 mg PO BID 04/27/19 ASSESSMENT AND PLAN: 68 year old male with hx of HTN, HLD, presents with lethargy, diaphoresis, CP, found to be profoundly bradycardic in 20s after recently starting Metoprolol. He reportedly has a negative cath at [facility]. Symptomatic Bradycardia Secondary to BB Metoprolol held. HR improving. Will obtain cath report from [facility]. DVT Px - Lovenox SQ
[2019-04-28 08:02] LABS: BASO % 0.2 % (0-2.0); EOS % 0.6 % (0-4.5); HEMATOCRIT 46.5 % (35.4-49); HEMOGLOBIN 15.9 GM/dL (11.7-16.9); LYMPH % 20.9 % (8-40); MCH 31.8 pg (25.7-33.7); MCHC 34.1 g/dl (32.0-35.9); MEAN CELL VOLUME 93.2 fl (80-96); MEAN PLT VOLUME 9.6 fl (7.5-11.1); MONO % 9.5 % (3.8-10.2); NEUT % 68.8 % (42.8-82.8); PLATELET COUNT 190 K/MM3 (134-434); RBC 4.99 M/mm3 (4.00-5.60); WHITE BLOOD COUNT 6.9 K/mm3 (4.0-10.0)
[2019-04-28 08:31] LABS: BILIRUBIN,TOTAL 0.9 mg/dL (0.2-1); BLOOD UREA NITROGEN 14.4 mg/dL (7-18); CALCIUM 9.4 mg/dL (8.5-10.1); MAGNESIUM 2.4 mg/dL (1.8-2.4); POTASSIUM 4.2 mmol/L (3.5-5.1); TOT PROT 7.8 g/dl (6.4-8.2)
[2019-04-28] MEDS: ENOXAPARIN NA (PORCINE) 40 MG/0.4 ML DISP.SYRIN SQ SCH (09:14)
--- NOTE | 2019-04-28 09:56 | PN ---
Progress Note, Physician Chief Complaint: Pt A&Ox3; feels "much better": no dizziness or weakness; no chest pain. History of Present Illness: The patient is a 68 year old male (dung Miller) who presents for evaluation of chest pressure and diaphoresis at rest. The patient was admitted on 04/24 to [facility], for similar symptoms. The patient received a cath and echo which reportedly came back normal and was discharged on toprol. - Current Medication List Current Medications: Active Medications Enoxaparin Sodium (Lovenox -) 40 mg SQ DAILY [facility] Last Admin: 04/28/19 09:14 Dose: 40 mg - Objective Vital Signs: Vital Signs Temperature 98.1 F 04/28/19 06:00 Pulse Rate 54 L 04/28/19 06:00 Respiratory Rate 16 04/28/19 06:00 Blood Pressure 142/78 04/28/19 06:00 O2 Sat by Pulse Oximetry (%) 97 04/27/19 20:46 Constitutional: Yes: No Distress Eyes: Yes: WNL HENT: Yes: WNL Neck: Yes: WNL Cardiovascular: Yes: Bradycardia, S1, S2 Respiratory: Yes: WNL Gastrointestinal: Yes: WNL ...Rectal Exam: Yes: Deferred Genitourinary: Yes: WNL Breast(s): Yes: WNL Musculoskeletal: Yes: WNL Extremities: Yes: WNL Edema: No Peripheral Pulses WNL: Yes Integumentary: Yes: WNL Neurological: Yes: WNL ...Motor Strength: WNL Psychiatric: Yes: WNL Labs: CBC, BMP 04/28/19 07:20 04/28/19 07:20 INR, PTT INR 1.12 (0.83-1.09) H 04/26/19 23:15 Abnormal Lab Results 04/28/19 07:20 Anion Gap 5 L Random Glucose 108 H Cholesterol 210 H Total LDL Cholesterol 143 H - ....Imaging Other: Image Reviewed (telemetry: normal sinus rhythm; HR 60-70 bpm, with periods of ventricular bigemniy and trigeminy) Problem List - Problems (1) Atypical chest pain Assessment/Plan: sharp chest pains that were occurring off and on all day, starting at rest, led to [facility] hospitalization. Pt says his erratic HR caused the team to cancel stress test; he instead had a coronary angiogram via the wrist, and reports it was "good". Will await records. LDL cholesterol 141 mg/dl: consider statin if diet and exercise do not improve this level. Addendum: Records from [facility] admission last week arrived:] Pt had NSR with periods o ventricular bi and trigeminy Coronary angiogram: all coronary arteries patent. Plan: MUGA for LVEF (ECHo was not done at [facility]; images here were suboptimal; "borderline reduced LVEF). Once MUGA is done, and if LVEF is WNL or only slightly reduced, pt may be followed as an outpatient from a cardiac perspective. Code(s): R07.89 - OTHER CHEST PAIN (2) Sinus bradycardia Assessment/Plan: Improved HR off beta blockers. Telemetry: Now in NSR, HR 60-80s, with periods of ventricular bi and tri geminy. Observed pt while he walked up and down long hallway here: the HR increased to 80s, and PVCs lessened. TSH WNL. Await records from [facility]: if coronary angiogram is negrative, may f/u as outpatient from cardiac perspective. Avoid AV conduction blockers. Code(s): R00.1 - BRADYCARDIA, UNSPECIFIED
--- NOTE | 2019-04-28 13:14 | PN ---
Teaching Attending Note Name of Resident: Ricki Kaur ATTENDING PHYSICIAN STATEMENT I saw and evaluated the patient. I reviewed the resident's note and discussed the case with the resident. I agree with the resident's findings and plan as documented. SUBJECTIVE: Intermittent CP, SOB on exertion appears to be improved. OBJECTIVE: Afebrile, Hemodynamicaly Stable. Last Vital Signs Temp Pulse Resp BP Pulse Ox 97.7 F 62 18 119/84 97 04/28/19 10:00 04/28/19 10:00 04/28/19 10:00 04/28/19 10:00 04/28/19 08:00 Heart - S1, S2, SR Lungs - clear to auscultation Abdomen - soft, non-tender. Bowel Sounds normal. Extremities - No edema, no calf tenderness. Laboratory Results - last 24 hr 04/27/19 04/28/19 04/28/19 06:15 07:20 07:20 WBC RBC Hgb Hct MCV MCH MCHC RDW Plt Count MPV Absolute Neuts (auto) Neutrophils % Lymphocytes % Monocytes % Eosinophils % Basophils % Nucleated RBC % Sodium 140 Potassium 4.2 Chloride 103 Carbon Dioxide 32 Anion Gap 5 L BUN 14.4 Creatinine 1.0 Est GFR (CKD-EPI)AfAm 90.50 Est GFR (CKD-EPI)NonAf 78.08 Random Glucose 108 H Hemoglobin A1c % 5.4 Calcium 9.4 Phosphorus 3.0 Magnesium 2.4 Total Bilirubin 0.9 AST 19 ALT 54 Alkaline Phosphatase 55 Total Protein 7.8 Albumin 4.0 Triglycerides 141 Cholesterol 210 H Total LDL Cholesterol 143 H HDL Cholesterol 41 Hep A IgM Ab Confirm Negative Hep Bs Antigen Negative Hep B Core IgM Ab Negative Hepatitis C Ab (EIA) <0.1 04/28/19 07:20 WBC 6.9 RBC 4.99 Hgb 15.9 Hct 46.5 MCV 93.2 MCH 31.8 MCHC 34.1 RDW 13.0 Plt Count 190 MPV 9.6 Absolute Neuts (auto) 4.7 Neutrophils % 68.8 Lymphocytes % 20.9 D Monocytes % 9.5 Eosinophils % 0.6 Basophils % 0.2 Nucleated RBC % 0 Sodium Potassium Chloride Carbon Dioxide Anion Gap BUN Creatinine Est GFR (CKD-EPI)AfAm Est GFR (CKD-EPI)NonAf Random Glucose Hemoglobin A1c % Calcium Phosphorus Magnesium Total Bilirubin AST ALT Alkaline Phosphatase Total Protein Albumin Triglycerides Cholesterol Total LDL Cholesterol HDL Cholesterol Hep A IgM Ab Confirm Hep Bs Antigen Hep B Core IgM Ab Hepatitis C Ab (EIA) Current Medications Generic Name Dose Route Start Last Admin Trade Name Maryjane PRN Reason Stop Dose Admin Atorvastatin Calcium 20 mg 04/28/19 22:00 Lipitor - PO HS [facility] Enoxaparin Sodium 40 mg 04/27/19 10:00 04/28/19 09:14 Lovenox - SQ 40 mg DAILY [facility] Administration Home Medications Medication Instructions Recorded Metoprolol Tartrate 25 mg PO BID 04/27/19 ASSESSMENT AND PLAN: 68 year old male with hx of HTN, HLD, presents with lethargy, diaphoresis, CP, found to be profoundly bradycardic in 20s after recently starting Metoprolol. He reportedly has a negative cath at [facility]. 1. Symptomatic Bradycardia - resolved Secondary to BB Metoprolol held. HR improved. Periods of Bigeminy on telemonitoring. Cath report from [facility] - normal coronaries (report reviewed) 2. Possible Systolic CHF (based on Echo, which was apparently a low quality study) - does not appear decompensated. No evidence of fluid overload. Negative recent coronary cath. Cardiology for further guidance re: if CHF is present and suggested drug regimen (appropriateness of DEBORAH-I etc) 3. Hyperlipidemia - started on Lipitor - for 3 week LFT and Lipid check. DVT Px - Lovenox SQ
--- NOTE | 2019-04-28 17:28 | DS ---
Physical Exam: SUBJECTIVE: 68 OBJECTIVE: Vital Signs Temp Pulse Resp BP Pulse Ox 97.9 F 64 16 118/67 97 04/28/19 14:00 04/28/19 14:00 04/28/19 14:00 04/28/19 14:00 04/28/19 16:00 PHYSICAL EXAM GENERAL: The patient is awake, alert, and fully oriented, in no acute distress. HEAD: Normal with no signs of trauma. EYES: PERRL, extraocular movements intact, sclera anicteric, conjunctiva clear. ENT: Ears normal, nares patent, oropharynx clear without exudates, moist mucous membranes. NECK: Trachea midline, full range of motion, supple. LUNGS: Breath sounds equal, clear to auscultation bilaterally, no wheezes, no crackles, no accessory muscle use. HEART: Regular rate and rhythm, S1, S2 without murmur, rub or gallop. ABDOMEN: Soft, nontender, nondistended, normoactive bowel sounds, no guarding, no rebound, no hepatosplenomegaly, no masses. EXTREMITIES: 2+ pulses, warm, well-perfused, no edema. NEUROLOGICAL: Cranial nerves II through XII grossly intact. Normal speech, gait not observed. PSYCH: Normal mood, normal affect. SKIN: Warm, dry, normal turgor, no rashes or lesions noted. LABS Laboratory Results - last 24 hr 04/27/19 04/28/19 04/28/19 06:15 07:20 07:20 WBC RBC Hgb Hct MCV MCH MCHC RDW Plt Count MPV Absolute Neuts (auto) Neutrophils % Lymphocytes % Monocytes % Eosinophils % Basophils % Nucleated RBC % Sodium 140 Potassium 4.2 Chloride 103 Carbon Dioxide 32 Anion Gap 5 L BUN 14.4 Creatinine 1.0 Est GFR (CKD-EPI)AfAm 90.50 Est GFR (CKD-EPI)NonAf 78.08 Random Glucose 108 H Hemoglobin A1c % 5.4 Calcium 9.4 Phosphorus 3.0 Magnesium 2.4 Total Bilirubin 0.9 AST 19 ALT 54 Alkaline Phosphatase 55 Total Protein 7.8 Albumin 4.0 Triglycerides 141 Cholesterol 210 H Total LDL Cholesterol 143 H HDL Cholesterol 41 Hep A IgM Ab Confirm Negative Hep Bs Antigen Negative Hep B Core IgM Ab Negative Hepatitis C Ab (EIA) <0.1 04/28/19 07:20 WBC 6.9 RBC 4.99 Hgb 15.9 Hct 46.5 MCV 93.2 MCH 31.8 MCHC 34.1 RDW 13.0 Plt Count 190 MPV 9.6 Absolute Neuts (auto) 4.7 Neutrophils % 68.8 Lymphocytes % 20.9 D Monocytes % 9.5 Eosinophils % 0.6 Basophils % 0.2 Nucleated RBC % 0 Sodium Potassium Chloride Carbon Dioxide Anion Gap BUN Creatinine Est GFR (CKD-EPI)AfAm Est GFR (CKD-EPI)NonAf Random Glucose Hemoglobin A1c % Calcium Phosphorus Magnesium Total Bilirubin AST ALT Alkaline Phosphatase Total Protein Albumin Triglycerides Cholesterol Total LDL Cholesterol HDL Cholesterol Hep A IgM Ab Confirm Hep Bs Antigen Hep B Core IgM Ab Hepatitis C Ab (EIA) HOSPITAL COURSE: Date of Admission:04/27/19 Date of Discharge: 04/28/19 Ricki Kaur MD Discharge Summary Reason For Visit: BRADYCARDIA, VENTRICULAR BIGEMINY SEEN ON CARDIAC Current Active Problems Atypical chest pain (Acute) Bradycardia (Acute) Chest pressure (Acute) Sinus bradycardia (Acute) 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 You were admitted because your heart rate was slow and you were placed on a heart monitor. You were also seen by a charge entry clerk. You were found to have heart failure and this means you should avoid drinking alcohol and using recreational drugs. Tests for your heart demonstrate you no longer need to be monitored in the hospital but should follow up with a charge entry clerk once you leave the hospital. You may now return home. MEDICATIONS STOP TAKING: Metoproplol, as this may inappropriately slow down your heart Please note the following NEW medications and take them as prescribed - Lipitor 40 mg every day by mouth - Enalapril 2.5 mg twice a day by mouth ADDITIONAL CARE - Please make an appointment with a primary care provider 1 week from today. Since you do not currently have one, you can call to schedule an appointment at our residents' clinic, [place] [address]. If you would like to continue seeing Dr. Ricki Kaur, please ask for a Thursday morning appointment. - Please make an additional appointment for 3 weeks from today to have your lab work drawn now that you are on new medications. - Please make an appointment with your charge entry clerk, Dr. Fernando Vieira, in 1 week from today. ADDITIONAL INFORMATION Please call 911 or come to the emergency department if you experience shortness of breath, chest pain, loss of energy, loss of function, loss of alertness, unusual bleeding or any other alarming symptoms. Referrals: Alin Purvis MD [Staff Physician] - Fernando Vieira MD [Staff Physician] - Disposition: HOME - Home Medications Comprehensive Discharge Medication List: Ambulatory Orders Atorvastatin Ca [Lipitor] 40 mg PO HS #30 tablet 04/28/19 Enalapril Maleate 2.5 mg PO BID 30 Days #60 tablet 04/28/19 - Discharge Referral Referred to [facility] Med [facility].: No ATTENDING PHYSICIAN STATEMENT I saw and evaluated the patient. I reviewed the resident's note and discussed the case with the resident. I agree with the resident's findings and plan as documented. SUBJECTIVE: OBJECTIVE: ASSESSMENT AND PLAN:
[2019-04-28 18:55] VITALS: BP 130/68; PULSE 60; TEMP 97.6
[2019-04-28] MEDS ORDERED: ATORVASTATIN CA 20 MG TABLET (FP) PO SCH (22:00)
== END 2019-04-28 18:55 | disposition home or self-care (01) ==
LOC: JER 22:40 → JERBED 04-27 00:29 → INTOOBSV 04-27 00:29 → J4S 04-27 15:30
PROVIDERS: ADMIT Internal Medicine
PROC: 3E013GC Introduction of Other Therapeutic Substance into Subcutaneous Tissue, Percutaneous Approach (ICD-10-PCS; principal; 2019-04-27)
DX: R07.89 Other chest pain (principal); R00.1 Bradycardia, unspecified; I10 Essential (primary) hypertension; R94.5 Abnormal results of liver function studies; Z87.891 Personal history of nicotine dependence; R06.02 Shortness of breath; R06.01 Orthopnea; R00.8 Other abnormalities of heart beat; G47.33 Obstructive sleep apnea (adult) (pediatric); R74.0 Nonspecific elevation of levels of transaminase and lactic acid dehydrogenase [LDH]
CPT/HCPCS: 36415; 71045-TC-FY; 78472-TC; 80053; 80061; 80074; 82550; 83036; 83721; 83735; 84100; 84443; 84484; 85025; 85610; 93005; 93010; 93306-TC; 93970-TC; 96372; 99285-25; A9538; G0378

== ENCOUNTER 2020-08-11 13:15 | Emergency (ER) | payer OTHER ==
[2020-08-11 13:34] VITALS: BP 109/64; PULSE 81; BMI 29.3
[2020-08-11 13:35] VITALS: TEMP 97.9
== END 2020-08-11 14:27 | disposition home or self-care (01) ==
LOC: JERFT 13:15
DX: L02.212 Cutaneous abscess of back [any part, except buttock and flank] (principal)
CPT/HCPCS: 99283-25

== ENCOUNTER 2020-09-03 12:05 | Emergency (ER) | payer OTHER | END 2020-09-03 14:21 | disposition home or self-care (01) | LOC: JERFT 12:05 | PROC: 0H96XZZ Drainage of Back Skin, External Approach (ICD-10-PCS; principal; 2020-09-03) | DX: L02.212 Cutaneous abscess of back [any part, except buttock and flank] (principal) | CPT/HCPCS: 99282-25 ==

== ENCOUNTER 2020-09-05 09:50 | Emergency (ER) | payer OTHER | END 2020-09-05 11:48 | disposition home or self-care (01) | LOC: JER 09:50 | DX: L02.212 Cutaneous abscess of back [any part, except buttock and flank] (principal) | CPT/HCPCS: 99281-25 ==

== ENCOUNTER 2020-10-10 10:34 | Day surgery (SDC) | payer OTHER ==
[2020-10-10 11:05] VITALS: TEMP 98.2
[2020-10-10 12:40] VITALS: BP 121/71; PULSE 76
== END 2020-10-10 13:00 | disposition home or self-care (01) ==
LOC: FASU-ENDO 10:34
PROVIDERS: ATTEND Internal Medicine Gastroenterology
PROC: 0DBN8ZX Excision of Sigmoid Colon, Via Natural or Artificial Opening Endoscopic, Diagnostic (ICD-10-PCS; 2020-10-10)
PROC: 0DBH8ZX Excision of Cecum, Via Natural or Artificial Opening Endoscopic, Diagnostic (ICD-10-PCS; principal; 2020-10-10 11:21)
DX: E88.2 Lipomatosis, not elsewhere classified (principal); D12.0 Benign neoplasm of cecum; K64.1 Second degree hemorrhoids; D12.5 Benign neoplasm of sigmoid colon
CPT/HCPCS: 88305-TC

== ENCOUNTER 2022-10-01 10:52 | Day surgery (SDC) | payer OTHER ==
[2022-09-30 12:52] VITALS: BMI 29.7
[2022-10-01 13:10] VITALS: RESP 18; TEMP 98
[2022-10-01 13:12] VITALS: BP 141/63; PULSE 61
== END 2022-10-01 13:46 | disposition home or self-care (01) ==
LOC: FASU-ENDO 10:52
PROVIDERS: ATTEND Internal Medicine Gastroenterology
PROC: 0DBL8ZX Excision of Transverse Colon, Via Natural or Artificial Opening Endoscopic, Diagnostic (ICD-10-PCS; principal; 2022-10-01 12:31)
DX: Z12.11 Encounter for screening for malignant neoplasm of colon (principal); D12.3 Benign neoplasm of transverse colon; K64.1 Second degree hemorrhoids; K64.8 Other hemorrhoids; Z86.010 Personal history of colon polyps
CPT/HCPCS: 88305-TC

== ENCOUNTER 2025-02-19 12:44 | Emergency (ER) | payer OTHER ==
[2025-02-19 13:05] VITALS: BP 129/88; PULSE 55; RESP 18; TEMP 97.8; BMI 29.7
[2025-02-19 14:21] LABS: ABSOLUTE IMMATURE GRANULOCYTES 0.01 x10^3/uL (0.0-0.031); BASOPHILS # 0.01 x10^3/uL (0.01-0.08); HEMATOCRIT 43.7 % (40.1-51.0); HEMOGLOBIN 14.4 g/dL (13.7-17.5); MEAN PLT VOLUME 10.8 fl (9.4-12.4); MONOCYTE # 0.53 x10^3/uL (0.30-0.82); MONOCYTE % 10.6 % (5.3-12.2); PLATELET COUNT 224 x10^3/uL (163-337); RDW 12.2 % (12.2-16.6)
[2025-02-19 14:41] LABS: POTASSIUM 4.3 mmol/L (3.5-5.1)
[2025-02-19 14:43] LABS: CALCIUM 9.4 mg/dL (8.5-10.1)
[2025-02-19 14:44] LABS: ALBUMIN 4.1 g/dl (3.4-5.0); BLOOD UREA NITROGEN 15.7 mg/dL (7-18); MAGNESIUM 2.2 mg/dL (1.8-2.4)
[2025-02-19 14:47] LABS: CREATININE 0.8 mg/dL (0.55-1.3)
[2025-02-19 14:48] LABS: BILIRUBIN,TOTAL 0.9 mg/dL (0.2-1)
== END 2025-02-19 15:27 | disposition home or self-care (01) ==
LOC: JER 12:44
DX: J18.9 Pneumonia, unspecified organism (principal); R00.1 Bradycardia, unspecified
CPT/HCPCS: 0241U-QW; 36415; 71045-TC-FY; 80053; 83735; 85025; 93005; 93010; 99285-25